=== PATIENT | female | born 1945 | race Caucasian/White ===

== ENCOUNTER 2024-12-13 14:20 | Observation (INO) | payer MEDICARE ==
--- NOTE | 2024-12-13 16:03 | XR ---
EXAMINATION TYPE: XR chest 2V DATE OF EXAM: 12/13/2024 CLINICAL INDICATION: Female, 79 years old with history of Chest Pain, TECHNIQUE: Frontal and lateral views of the chest are obtained. COMPARISON: None FINDINGS: Overlying EKG leads are present. There is no focal air space opacity, pleural effusion, o r pneumothorax seen. The cardiac silhouette size is within normal limits. The osseous structures a re demineralized. There is levoconvex scoliosis centered near the thoracolumbar junction IMPRESSION: No acute process. [facility], , 12/13/2024 4:01 PM
[2024-12-13 16:07] LABS: Basophils % (A) 0 %; Eosinophils # (A) 0.1 k/uL (0-0.7); Eosinophils % (A) 1 %; HCT 44.9 % (34.0-46.0); HGB 14.2 gm/dL (11.4-16.0); Lymphocytes # (A) 1.1 k/uL (1.0-4.8); Lymphocytes % (A) 24 %; MCH 29.5 pg (25.0-35.0); MCHC 31.8 g/dL (31.0-37.0); Mean Platelet Volume 7.7; Monocytes # (A) 0.3 k/uL (0-1.0); Monocytes % (A) 6 %; Neutrophils # (A) 3.2 k/uL (1.3-7.7); Neutrophils % (A) 67 %; Platelet Count 201 k/uL (150-450); RBC 4.82 m/uL (3.80-5.40); RDW 12.6 % (11.5-15.5); WBC 4.8 k/uL (3.8-10.6)
[2024-12-13 16:20] LABS: INR 0.9 (<1.2); Prothrombin Time 10.4 sec (10.0-12.5)
[2024-12-13 16:22] LABS: ALT 12 U/L (4-34); AST 25 U/L (14-36); African American GFR (CKD) >90 (>60 ml/min/1.73 sqM); Albumin 4.5 g/dL (3.5-5.0); Alkaline Phosphatase 64 U/L (38-126); Anion Gap 12 mmol/L; Blood Urea Nitrogen 17 mg/dL (7-17); Calcium 9.2 mg/dL (8.4-10.2); Carbon Dioxide 24 mmol/L (22-30); Chloride 101 mmol/L (98-107); Glucose 59 mg/dL (74-99); Lipase 87 U/L (23-300); Magnesium 2.2 mg/dL (1.6-2.3); Non-African American GFR(CKD) 87 (>60 ml/min/1.73 sqM); Potassium 3.9 mmol/L (3.5-5.1); Sodium 137 mmol/L (137-145); Total Bilirubin 0.7 mg/dL (0.2-1.3); Total Protein 7.4 g/dL (6.3-8.2)
[2024-12-13 16:29] LABS: NT-Pro-B-Type Natriuretic Pept 251 pg/mL
--- NOTE | 2024-12-13 17:12 | ED ---
General Adult HPI - General Chief complaint: Chest Pain Stated complaint: Chest pain R arm and jaw tingling Time Seen by Provider: 12/13/24 15:15 Source: patient Mode of arrival: ambulatory Limitations: no limitations - History of Present Illness Initial comments: Patient is a healthy 79 y/o female presenting today for right palm tingling, intermittent right jaw tingling and intermittent chest pain. States that the tingling in her right palm began yesterday evening and is limited to the right palmar aspect of her right palm only. States she has also been getting intermittent episodes of tingling that radiate up her right jaw in addition to sharp right sided chest pain that intermittently radiates to her back. None of these symptoms appear to have any exacerbating or alleviating factors. States symptoms have been occurring periodically over the last 2 months if not longer. She denies any hx strokes, any additional numbness, tingling or weakness, dizziness, headaches, changes in vision, slurred speech, difficulty in breathing, LE swelling, fevers, neck injury, recent neck manipulation, abdominal pain, nausea, vomiting, diarrhea, melena or hematochezia. - Related Data Home Medications Medication Instructions Recorded Confirmed No Known Home Medications 12/13/24 12/13/24 Allergies Allergy/AdvReac Type Severity Reaction Status Date / Time No Known Allergies Allergy Verified 12/13/24 15:29 Review of Systems ROS Statement: Those systems with pertinent positive or pertinent negative responses have been documented in the HPI. ROS Other: All systems not noted in ROS Statement are negative. Past Medical History Past Medical History: No Reported History History of Any Multi-Drug Resistant Organisms: None Reported Past Surgical History: Section, Hysterectomy Past Psychological History: No Psychological Hx Reported Smoking Status: Never smoker Past Alcohol Use History: Rare Past Drug Use History: None Reported General Exam - General Exam Comments Initial Comments: PE: CONSTITUTIONAL: No apparent distress, well appearing SKIN: Warm, dry, no jaundice, hives or petechiae EYES: Pupils are equally round, extraocular movements intact without nystagmus, clear conjunctiva, non-icteric sclera HENT: Normocephalic, atraumatic, moist mucus membranes, oropharynx clear without exudates NECK: , Full range of motion, normal appearance, no carotid bruits, no fluctuance or palpable mass, though pt states she felt some tenderness to deep palpation anterior right lower neck, to the right of and base of trachea, no palpable masses in this region PULMONARY: Clear to auscultation without wheezes, rhonchi, or rales, normal excursion, no accessory muscle use and no stridor CARDIOVASCULAR: Regular rate, rhythm, normal S1 and S2. No appreciated murmurs, rubs or gallops. Strong radial pulses with intact distal perfusion. No lower ex tremity edema GASTROINTESTINAL: Soft, active bowel sounds throughout, non-tender, non- distended, no palpable masses, no rebound or guarding. No hepatosplenomegaly GENITOURINARY: MUSCULOSKELETAL: Extremities have no gross deformity, no edema, redness, or swelling. No calf swelling NEUROLOGIC:_a/o x 3, GCS 15, normal mentation and speech. Moves all extremities x 4 without motor or sensory deficit, endorses decreased sensation to light touch to the hypothemar eminence of the right palm, this does not extend up the arm or into the hand, no abnormal movements, redness or swelling in this region. No additional neurologic deficits. PSYCHIATRIC:_normal mood and affect, thought process is clear and linear Limitations: no limitations Course Vital Signs 12/13/24 12/13/24 12/13/24 14:22 14:53 15:00 Temperature 98.0 F Pulse Rate 85 71 68 Pulse Rate [ Pulse Oximetery ] Respiratory 17 18 13 Rate Blood Pressure 150/80 140/79 140/79 Blood Pressure [Supine] O2 Sat by Pulse 99 94 L 99 Oximetry 12/13/24 12/13/24 12/13/24 15:30 16:00 16:30 Temperature Pulse Rate 69 67 66 Pulse Rate [ Pulse Oximetery ] Respiratory 20 12 9 L Rate Blood Pressure 132/63 127/74 147/71 Blood Pressure [Supine] O2 Sat by Pulse 99 97 97 Oximetry 12/13/24 12/13/24 12/13/24 17:00 21:09 21:32 Temperature 97.6 F 97.8 F Pulse Rate 91 Pulse Rate [ 77 Pulse Oximetery ] Respiratory 18 17 Rate Blood Pressure 143/71 119/71 Blood Pressure 132/77 [Supine] O2 Sat by Pulse 97 98 Oximetry EKG Findings - EKG Comments: EKG Findings:: Sinus rhythm, rate 72 bpm AR interval 154 ms QT/QTc 414/438 ms, normal axis, no ST elevations or depressions, no arrhythmia no Brugada pattern Medical Decision Making - Medical Decision Making Was pt. sent in by a medical professional or institution ([facility], [facility], urgent care, hospital, or fpc...) When possible be specific @ -No Did you speak to anyone other than the patient for history (EMS, parent, family, police, friend...)? What history was obtained from this source @ -No Did you review nursing and triage notes (agree or disagree)? Why? @ -I reviewed nursing and triage notes Were old charts reviewed (outside hosp., previous admission, EMS record, old EKG, old radiological studies, urgent care reports/EKG's, fpc records)? Report findings @ -Medical records reviewed- no prior records available for review Differential Diagnosis (chest pain, altered mental status, abdominal pain women, abdominal pain men, vaginal bleeding, weakness, fever, dyspnea, syncope, headache, dizziness, GI bleed, back pain, seizure, CVA, palpatations, mental health, musculoskeletal)? @ -Differential Chest Pain: Stable Angina, Unstable Angina, STEMI, NSTEMI Aortic Dissection, pericarditis, pleurisy, chostochondirits, Pneumothorax, Musculoskeletal, Esophageal Spasm GERD, Cholecystitis, Pancreatitis, Zoster, this is not meant to be an all-i nclusive list. EKG interpreted by me (3pts min.). @ -As above X-rays interpreted by me (1pt min.). @Personally reviewed chest x-ray see no evidence of cardiomegaly or consolidations I agree with radiologist interpretation CT interpreted by me (1pt min.). @I personally reviewed CT PE study, I see no evidence of of pulmonary emboli, I did specifically look at the right ICA, the portions are visualized not show any evidence of dissection, radiologist does note that the lower neck shows no significant findings, I agree with radiologist interpretation U/S interpreted by me (1pt. min.). @ -None done What testing was considered but not performed or refused? (CT, X-rays, U/S, labs)? Why? Please see below What meds were considered but not given or refused? Why? @ -None Did you discuss the management of the patient with other professionals (professionals i.e. [facility], [facility], lab, RT, psych nurse, renal social worker, yarn texturing machine operator, teacher, probation officer, pillowcase folder)? Give summary @ -No Was smoking cessation discussed for >3mins.? @ -No Was critical care preformed (if so, how long)? @ -No Were there social determinants of health that impacted care today? How? (Homelessness, low income, unemployed, alcoholism, drug addiction, transportation, low edu. Level, literacy, decrease access to med. care, snf, rehab)? @ -No Was there de-escalation of care discussed even if they declined (Discuss DNR or withdrawal of care, Hospice)? @ -No What co-morbidities impacted this encounter? (DM, HTN, Smoking, COPD, CAD, Cancer, CVA, ARF, Chemo, Hep., AIDS, mental health diagnosis, sleep apnea, morbid obesity)? @ -None Was patient admitted / discharged? Hospital course, mention meds given and route, prescriptions, significant lab abnormalities, going to OR and other pertinent info. @ -Admission for observation-this is a pleasant 79-year-old female with no significant medical history presenting today for intermittent chest pain, tingling to the right jaw and tingling in her right palm. Patient has no focal neurologic deficits on exam and endorses only decreased sensation to the hypothenar eminence of the right palm, this does not extend up the fingers or the arm. Neck exam shows no bruits or palpable thrill, no palpable masses or erythema, no thyromegaly. Discussed with patient plan for chest pain workup including D-dimer as it is the symptoms are secondary to atypical ACS symptoms. At this point I do not feel intracranial or vascular imaging of the neck is indicated given localization of tingling to right hypothenar emesis and benign neck exam. D dimer was minimally eleavted. CT PE study obtained which was also able to visualize the lower aspect of the neck where pt endorsed to mild TTP on exam. Read as no acute process by radiolgist. Labs reassuring. Pt will be admitted for observation for atypical chest pain symptoms. She is agreeable w/ POC. Case discussed w/ Dr. Adam, who kindly accepted pt for admission. Undiagnosed new problem with uncertain prognosis? @ -No Drug Therapy requiring intensive monitoring for toxicity (Heparin, Nitro, Insulin, Cardizem)? @ -No Were any procedures done? @ -No Diagnosis/symptom? Chest pain Acute, or Chronic, or Acute on Chronic? @ -Acute Uncomplicated (without systemic symptoms) or Complicated (systemic symptoms)? Complicated Side effects of treatment? @ -No Exacerbation, Progression, or Severe Exacerbation? @ -No Poses a threat to life or bodily function? How? (Chest pain, [place], [place], pneumonia, PE, COPD, DKA, ARF, appy, cholecystitis, CVA, Diverticulitis, Homicidal, Suicidal, threat to staff... and all critical care pts) @ -Yes potentially secondary to ACS - Lab Data Result diagrams: 12/14/24 05:43 12/14/24 05:43 Lab Results 12/13/24 12/13/24 12/13/24 Range/Units 15:48 15:48 15:48 WBC 4.8 (3.8-10.6) k/uL RBC 4.82 (3.80-5.40) m/uL Hgb 14.2 (11.4-16.0) gm/dL Hct 44.9 (34.0-46.0) % MCV 93.0 (80.0-100.0) fL MCH 29.5 (25.0-35.0) pg MCHC 31.8 (31.0-37.0) g/dL RDW 12.6 (11.5-15.5) % Plt Count 201 (150-450) k/uL MPV 7.7 Neutrophils % 67 % Lymphocytes % 24 % Monocytes % 6 % Eosinophils % 1 % Basophils % 0 % Neutrophils # 3.2 (1.3-7.7) k/uL Lymphocytes # 1.1 (1.0-4.8) k/uL Monocytes # 0.3 (0-1.0) k/uL Eosinophils # 0.1 (0-0.7) k/uL Basophils # 0.0 (0-0.2) k/uL PT 10.4 (10.0-12.5) sec INR 0.9 (<1.2) APTT 23.0 (22.0-30.0) sec D-Dimer 0.62 H (<0.60) mg/L FEU Sodium 137 (137-145) mmol/L Potassium 3.9 (3.5-5.1) mmol/L Chloride 101 (98-107) mmol/L Carbon Dioxide 24 (22-30) mmol/L Anion Gap 12 mmol/L BUN 17 (7-17) mg/dL Creatinine 0.60 (0.52-1.04) mg/dL Est GFR (CKD-EPI)AfAm >90 (>60 ml/min/1.73 sqM) Est GFR (CKD-EPI)NonAf 87 (>60 ml/min/1.73 sqM) Glucose 59 L (74-99) mg/dL Calcium 9.2 (8.4-10.2) mg/dL Magnesium 2.2 (1.6-2.3) mg/dL Total Bilirubin 0.7 (0.2-1.3) mg/dL AST 25 (14-36) U/L ALT 12 (4-34) U/L Alkaline Phosphatase 64 (38-126) U/L Troponin I (0.000-0.034) ng/mL NT-Pro-B Natriuret Pep 251 pg/mL Total Protein 7.4 (6.3-8.2) g/dL Albumin 4.5 (3.5-5.0) g/dL Lipase 87 (23-300) U/L // Range/Units 15:48 WBC (3.8-10.6) k/uL RBC (3.80-5.40) m/uL Hgb (11.4-16.0) gm/dL Hct (34.0-46.0) % MCV (80.0-100.0) fL MCH (25.0-35.0) pg MCHC (31.0-37.0) g/dL RDW (11.5-15.5) % Plt Count (150-450) k/uL MPV Neutrophils % % Lymphocytes % % Monocytes % % Eosinophils % % Basophils % % Neutrophils # (1.3-7.7) k/uL Lymphocytes # (1.0-4.8) k/uL Monocytes # (0-1.0) k/uL Eosinophils # (0-0.7) k/uL Basophils # (0-0.2) k/uL PT (10.0-12.5) sec INR (<1.2) APTT (22.0-30.0) sec D-Dimer (<0.60) mg/L FEU Sodium (137-145) mmol/L Potassium (3.5-5.1) mmol/L Chloride (98-107) mmol/L Carbon Dioxide (22-30) mmol/L Anion Gap mmol/L BUN (7-17) mg/dL Creatinine (0.52-1.04) mg/dL Est GFR (CKD-EPI)AfAm (>60 ml/min/1.73 sqM) Est GFR (CKD-EPI)NonAf (>60 ml/min/1.73 sqM) Glucose (74-99) mg/dL Calcium (8.4-10.2) mg/dL Magnesium (1.6-2.3) mg/dL Total Bilirubin (0.2-1.3) mg/dL AST (14-36) U/L ALT (4-34) U/L Alkaline Phosphatase (38-126) U/L Troponin I 0.019 (0.000-0.034) ng/mL NT-Pro-B Natriuret Pep pg/mL Total Protein (6.3-8.2) g/dL Albumin (3.5-5.0) g/dL Lipase (23-300) U/L Disposition Clinical Impression: Chest pain Disposition: ADMITTED IP TO THIS [facility] Condition: Stable
[2024-12-13] MEDS ORDERED: NALOXONE 0.4 MG/ML 1 ML VIAL IV PRN (17:13)
[2024-12-13] MEDS ORDERED: ACETAMINOPHEN TAB 325 MG TAB PO PRN (17:13)
[2024-12-13] MEDS ORDERED: ALPRAZolam 0.25 MG TAB PO PRN (17:13)
[2024-12-13] MEDS ORDERED: MAG HYDROX/AL HYDROX/SIMETH 30 ML CUP PO PRN (17:13)
[2024-12-13] MEDS ORDERED: IBUPROFEN 400 MG TAB PO PRN (17:13)
[2024-12-13] MEDS ORDERED: CALCIUM CARBONATE 500 MG CHEWABLE PO PRN (17:13)
[2024-12-13] MEDS ORDERED: ONDANSETRON 4 MG/2 ML VIAL IVP PRN (17:13)
--- NOTE | 2024-12-13 17:19 | CT ---
EXAMINATION TYPE: CT chest angio for PE CT DLP: 273.1 mGycm, Automated exposure control for dose reduction was used. DATE OF EXAM: 12/13/2024 5:11 PM COMPARISON: Chest radiograph from same day. CLINICAL INDICATION:Female, 79 years old with history of right sided chest pain, rad to neck and back ; Right sided chest pain, rad to neck and back. TECHNIQUE/CONTRAST: CTA scan of the thorax is performed with IV Contrast, patient injected with 100 ml mL of Isovue 370, pulmonary embolism protocol. MIP images are created and reviewed. FINDINGS: Pulmonary Artery: There is no evidence for a filling defect within the pulmonary vasculature to sugge st acute pulmonary embolism. The pulmonary artery is of normal size. Lungs/Pleura: No evidence of focal consolidation, pleural effusion or pneumothorax. Minimal dependent bilateral lower lobe subsegmental atelectasis. Minimal right mid lung linear scarring and/or atelect asis. Minimal biapical pleural parenchymal scarring. No suspicious pulmonary nodule or mass. Airway: Large airways are patent. Heart: Size within normal limits.No pericardial effusion. No significant coronary artery calcificatio ns. Vasculature: No evidence of aortic aneurysm. Mild atherosclerotic calcification of the aorta and its branches. Mediastinum: No gross evidence of adenopathy. Musculoskeletal: No acute osseous abnormalities. Bilateral shoulder arthropathy. Right AC joint arthr opathy. S-shaped scoliotic curvature of the thoracolumbar spine. Mild multilevel degenerative disc di sease. Soft Tissues: Unremarkable. Lower neck: No significant findings. Upper Abdomen: Inferior hepatic 1.6 cm cyst. Additional right hepatic dome subcentimeter focus which is too small characterize but likely represents a cyst. Contrast is demonstrated within both renal co llecting systems. Duodenal diverticulum. IMPRESSION: No evidence of pulmonary embolism or acute thoracic process. [facility], , 12/13/2024 5:17 PM
[2024-12-13] MEDS: ASPIRIN 81 MG PO STA (17:25)
[2024-12-13 21:00] LABS: Glucose,Whole Blood 159 mg/dL (70-110)
[2024-12-13] MEDS: FAMOTIDINE 20 MG TAB PO SCH (21:07)
--- NOTE | 2024-12-14 07:27 | US ---
EXAMINATION TYPE: US carotid duplex BILAT DATE OF EXAM: 12/13/2024 COMPARISON: NONE CLINICAL INDICATION: Female, 79 years old with history of TIA; patient states right side face and miranda d numbness Additional History: .... TECHNIQUE: Grayscale, color Doppler and spectral Doppler evaluation of the bilateral carotid systems and vertebral arteries. Indirect Doppler criteria was utilized. FINDINGS: EXAM MEASUREMENTS: RIGHT: Peak Systolic Velocity (PSV) cm/sec ----- Right CCA: 81.9 ----- Right ICA: 140.0 ----- Right ECA: 85.8 ICA/CCA ratio: 1.7 RIGHT: End Diastole cm/sec ----- Right CCA: 16.9 ----- Right ICA: 29.9 ----- Right ECA: 0.0 LEFT: Peak Systolic Velocity (PSV) cm/sec ----- Left CCA: 94.8 ----- Left ICA: 150.0 ----- Left ECA: 73.9 ICA/CCA ratio: 1.6 LEFT: End Diastole cm/sec ----- Left CCA: 18.8 ----- Left ICA: 31.2 ----- Left ECA: 0.0 VERTEBRALS (direction of flow): Right Vertebral: Antegrade Left Vertebral: Antegrade Rhythm: Normal COURT CRIER NOTES: Slightly elevated velocities seen within bilateral distal ICA's. Plaque seen bilat eral bulbs. 0.5cm probable lymph node seen near the left CCA Color Doppler imaging shows patency with blood flow throughout the carotid artery. Spectral waveforms are within normal limits. Enlarged benign appearing lymph node with central fatty hilum adjacent to the mid CCA. IMPRESSION: Right: Mild atherosclerotic plaque at the carotid bulb with less than 50% stenosis of the carotid bif urcation. Left: Mild atherosclerotic plaque at the carotid bulb with less than 50% stenosis of the carotid bifu rcation. Criteria for Assigning % of Stenosis / Diameter reduction (Estimation based on the indirect measurements of the internal carotid artery velocities (ICA PSV). 1. Normal (no stenosis)=ICA PSV < 125 cm/s: ratio < 2.0: ICA EDV<40 cm/s. 2. Less than 50% stenosis=ICA PSV < 125 cm/s: ratio < 2.0: ICA EDV<40 cm/s. 3. 50 to 69% stenosis=ICA PSV of 125 to 230 cm/s: ration 2.0 ? 4.0: ICA EDV 40-100 cm/s. 4. Greater than 70% stenosis to near occlusion= ICA PSV > 230 cm/s: ratio > 4.0: ICA EDV > 100 cm/s. 5. Near occlusion= ICA PSV velocities may be low or undetectable: variable ratio and ICA EDV. 6. Total occlusion=unable to detect flow. [facility], , 12/14/2024 7:24 AM
[2024-12-14 08:20] LABS: BUN/Creat Ratio 21.67 Ratio (12.00-20.00); Calcium 8.6 mg/dL (8.7-10.3); Carbon Dioxide 24.3 mmol/L (21.6-31.8); Chloride 110 mmol/L (96-109); Glucose 91 mg/dL (70-110); Sodium 143 mmol/L (135-145)
[2024-12-14] MEDS: ASPIRIN 81 MG PO SCH (08:20)
[2024-12-14 08:22] LABS: Basophils # (A) 0.02 X 10*3/uL (0.00-0.10); Basophils % (A) 0.5 %; Eosinophils % (A) 2.4 %; HCT 38.1 % (37.2-46.3); HGB 12.4 g/dL (12.0-15.0); Lymphocytes # (A) 1.55 X 10*3/uL (0.90-5.00); Lymphocytes % (A) 37.4 %; MCH 30.3 pg (27.0-32.0); MCHC 32.5 g/dL (32.0-37.0); MCV 93.2 FL (80.0-97.0); Mean Platelet Volume 9.8 FL (9.5-12.2); Monocytes # (A) 0.33 X 10*3/uL (0.20-1.00); NRBC Per 100 WBC 0 X 10*3/uL (0.00-0.01); Neutrophils # (A) 2.12 X 10*3/uL (1.80-7.70); Neutrophils % (A) 51.2 %; Platelet Count 166 X 10*3/uL (140-440); RBC 4.09 X 10*6/uL (4.10-5.20); RDW 13.2 % (11.5-14.5); WBC 4.14 X 10*3/uL (4.50-10.00)
--- NOTE | 2024-12-14 10:15 | P.CRDCN ---
History of Present Illness History of present illness: HISTORY OF PRESENT ILLNESS: This is a 79-year-old female with no significant past medical history. Patient does not follow with a senior operator. We have been asked to see the patient in c onsultation for chest pain. Patient examined at the bedside. Patient states that she has been having numbness in her right hand and jaw that occurs about once a month. She also reports having some mild right sided chest discomfort. She states this has been going on for a long time and usually only happens about once a month. She states that she lives with her daughter and her daughter was concerned and made her come to the hospital for further evaluation. At the time of exam this morning, she denies any chest pain or shortness of breath. DIAGNOSTICS: - EKG reveals sinus mechanism with no signs of acute ischemia. - Chest xray negative for acute process - Chest CTA: Negative for pulmonary embolism. No significant coronary artery calcifications. - Laboratory data: WBC 4.14. Hemoglobin 12.4. Platelet count 166. D-dimer 0.62. Sodium 143. Potassium 4.0. BUN 13. Creatinine 0.60. Troponin negative x 3. proBNP 251. - Current home cardiac medications include none - No previous echocardiogram, stress test, or cardiac catheterization available in EMR for review REVIEW OF SYSTEMS: At the time of my exam: CONSTITUTIONAL: Denies fever or chills. HEENT: Denies blurred vision, vision changes, or eye pain. Denies hemoptysis CARDIOVASCULAR: Denies chest pain. Denies orthopnea. Denies PND. Denies palpitations RESPIRATORY: Denies shortness of breath. GASTROINTESTINAL: Denies abdominal pain. Denies nausea or vomiting. HEMATOLOGIC: Denies bleeding disorders. GENITOURINARY: Denies any blood in urine. SKIN: Denies pruitis. Denies rash. PHYSICAL EXAM: VITAL SIGNS: Reviewed. GENERAL: Well-developed in no acute distress. HEENT: Head is normocephalic. Pupils are equal, round. Sclerae anicteric. Mucous membranes of the mouth are moist. Neck supple. No JVD or thyromegaly LUNGS: Respirations even and unlabored. Lungs essentially clear to auscultation bilaterally. HEART: Regular rate and rhythm. S1 and S2 heard. ABDOMEN: Soft. Nondistended. Nontender. EXTREMITIES: Normal range of motion. No clubbing or cyanosis. Peripheral pulses intact. No lower extremity edema NEUROLOGIC: Awake and alert. Oriented x 3. ASSESSMENT: Right sided chest pain with numbness of right hand and jaw, troponin negative x 3 PLAN: An acute coronary event has been ruled out Add aspirin 81 mg daily Check lipid panel and hemoglobin A1c Discussed stress testing with patient. Patient is adamant that she does not want to undergo stress testing. Obtain 2D echo to assess cardiac structure and function Further recommendations pending patient course Nurse practitioner note has been reviewed by physician. Signing provider agrees with the documented findings, assessment, and plan of care documented by DIRECTOR CORPORATE as a scribe. Past Medical History Past Medical History: No Reported History Additional Past Medical History / Comment(s): no medical hx History of Any Multi-Drug Resistant Organisms: None Reported Past Surgical History: Section, Hysterectomy Past Anesthesia/Blood Transfusion Reactions: No Reported Reaction Past Psychological History: No Psychological Hx Reported Smoking Status: Never smoker Past Alcohol Use History: Rare Past Drug Use History: None Reported Medications and Allergies Home Medications Medication Instructions Recorded Confirmed Type No Known Home Medications 12/13/24 12/13/24 History Allergies Allergy/AdvReac Type Severity Reaction Status Date / Time No Known Allergies Allergy Verified 12/13/24 15:29 Physical Exam Vitals: Vital Signs Temp Pulse Pulse Resp BP BP BP 12/14/24 07:00 97.6 F 67 15 132/61 12/14/24 01:08 97.6 F 67 17 135/76 12/13/24 21:32 97.8 F 77 17 132/77 12/13/24 21:09 97.6 F 91 18 119/71 12/13/24 17:00 143/71 12/13/24 16:30 66 9 L 147/71 12/13/24 16:00 67 12 127/74 12/13/24 15:30 69 20 132/63 12/13/24 15:00 68 13 140/79 12/13/24 14:53 71 18 140/79 12/13/24 14:22 98.0 F 85 17 150/80 Pulse Ox 12/14/24 07:00 99 12/14/24 01:08 98 12/13/24 21:32 98 12/13/24 21:09 97 12/13/24 17:00 12/13/24 16:30 97 12/13/24 16:00 97 12/13/24 15:30 99 12/13/24 15:00 99 12/13/24 14:53 94 L 12/13/24 14:22 99 Intake and Output 12/13/24 12/14/24 12/14/24 22:59 06:59 14:59 Other: # Voids 1 2 Weight 63.503 kg Results 12/14/24 05:43 12/14/24 05:43 Cardiac Enzymes 12/13/24 12/13/24 12/13/24 Range/Units 15:48 15:48 18:09 AST 25 (14-36) U/L Troponin I 0.019 <0.012 (0.000-0.034) ng/mL 12/13/24 Range/Units 21:13 AST (14-36) U/L Troponin I <0.012 (0.000-0.034) ng/mL Coagulation 12/13/24 Range/Units 15:48 PT 10.4 (10.0-12.5) sec APTT 23.0 (22.0-30.0) sec CBC 12/13/24 Range/Units 15:48 WBC 4.8 (3.8-10.6) k/uL RBC 4.82 (3.80-5.40) m/uL Hgb 14.2 (11.4-16.0) gm/dL Hct 44.9 (34.0-46.0) % Plt Count 201 (150-450) k/uL Comprehensive Metabolic Panel 12/13/24 Range/Units 15:48 Sodium 137 (137-145) mmol/L Potassium 3.9 (3.5-5.1) mmol/L Chloride 101 (98-107) mmol/L Carbon Dioxide 24 (22-30) mmol/L BUN 17 (7-17) mg/dL Creatinine 0.60 (0.52-1.04) mg/dL Glucose 59 L (74-99) mg/dL Calcium 9.2 (8.4-10.2) mg/dL AST 25 (14-36) U/L ALT 12 (4-34) U/L Alkaline Phosphatase 64 (38-126) U/L Total Protein 7.4 (6.3-8.2) g/dL Albumin 4.5 (3.5-5.0) g/dL Current Medications Generic Name Dose Route Start Last Admin Trade Name Freq PRN Reason Stop Dose Admin Acetaminophen 650 mg 12/13/24 17:13 Acetaminophen Tab 325 Mg Tab PO Q6HR PRN Mild Pain or Fever > 100.5 Al Hydroxide/Mg Hydroxide 15 ml 12/13/24 17:13 Mag Hydrox/Al Hydrox/Simeth 30 Ml Cup PO Q6HR PRN Indigestion Alprazolam 0.25 mg 12/13/24 17:13 Alprazolam 0.25 Mg Tab PO Q6HR PRN Anxiety Calcium Carbonate/Glycine 1,000 mg 12/13/24 17:13 Calcium Carbonate 500 Mg Chewable PO Q4HR PRN Dyspepsia Famotidine 20 mg 12/13/24 21:00 12/13/24 21:07 Famotidine 20 Mg Tab PO Not Given BID EVELIN Ibuprofen 400 mg 12/13/24 17:13 Ibuprofen 400 Mg Tab PO Q6HR PRN Mild Pain or Fever > 100.5 Naloxone HCl 0.2 mg 12/13/24 17:13 Naloxone 0.4 Mg/Ml 1 Ml Vial IV Q2M PRN Opioid Reversal Ondansetron HCl 4 mg 12/13/24 17:13 Ondansetron 4 Mg/2 Ml Vial IVP Q8HR PRN Nausea And Vomiting Intake and Output 12/13/24 12/14/24 12/14/24 22:59 06:59 14:59 Other: # Voids 1 2 Weight 63.503 kg 12/13/24 15:48 12/13/24 15:48
[2024-12-14 16:17] LABS: Chol/HDL Ratio 3.56 Ratio; LDL Cholesterol,Calculated 143.8 mg/dL (0.0-131.0)
--- NOTE | 2024-12-14 17:17 | P.HPIM ---
History of Present Illness H&P Date: 12/13/24 Chief Complaint: Chest pain/numbness right arm 79 y/o female presenting today for right palm tingling, intermittent right jaw tingling and intermittent chest pain. States that the tingling in her right palm began yesterday evening and is limited to the right palmar aspect of her right palm only. States she has also been getting intermittent episodes of tingling that radiate up her right jaw in addition to sharp right sided chest pain that intermittently radiates to her back. None of these symptoms appear to have any exacerbating or alleviating factors. States symptoms have been occurring periodically over the last 2 months if not longer. She denies any hx strokes, an y additional numbness, tingling or weakness, dizziness, headaches, changes in vision, slurred speech, difficulty in breathing, LE swelling, fevers, neck injury, recent neck manipulation, abdominal pain, nausea, vomiting, diarrhea, melena or hematochezia. - EKG reveals sinus mechanism with no signs of acute ischemia. - Chest xray negative for acute process - Chest CTA: Negative for pulmonary embolism. No significant coronary artery calcifications. - Laboratory data: WBC 4.14. Hemoglobin 12.4. Platelet count 166. D-dimer 0.62. Sodium 143. Potassium 4.0. BUN 13. Creatinine 0.60. Troponin negative x 3. proBNP 251. Review of Systems REVIEW OF SYSTEMS: CONSTITUTIONAL: No fever, no malaise, no fatigue. HEENT: No recent visual problems or hearing problems. Denied any sore throat. CARDIOVASCULAR: Chest pain PULMONARY: No shortness of breath, no cough, no hemoptysis. GASTROINTESTINAL: No diarrhea, no nausea, no vomiting, no abdominal pain. NEUROLOGICAL: No headaches, no weakness, no numbness. HEMATOLOGICAL: Denies any bleeding or petechiae. GENITOURINARY: Denies any burning micturition, frequency, or urgency. MUSCULOSKELETAL/RHEUMATOLOGICAL: Denies any joint pain, swelling, or any muscle pain. ENDOCRINE: Denies any polyuria or polydipsia. The rest of the 14-point review of systems is negative. Past Medical History Past Medical History: No Reported History History of Any Multi-Drug Resistant Organisms: None Reported Past Surgical History: Section, Hysterectomy Past Psychological History: No Psychological Hx Reported Smoking Status: Never smoker Past Alcohol Use History: Rare Past Drug Use History: None Reported Medications and Allergies Home Medications Medication Instructions Recorded Confirmed Type No Known Home Medications 12/13/24 12/13/24 History Allergies Allergy/AdvReac Type Severity Reaction Status Date / Time No Known Allergies Allergy Verified 12/13/24 15:29 Physical Exam Vitals: Vital Signs Temp Pulse Resp BP Pulse Ox 12/13/24 17:00 143/71 12/13/24 16:30 66 9 L 147/71 97 12/13/24 16:00 67 12 127/74 97 12/13/24 15:30 69 20 132/63 99 12/13/24 15:00 68 13 140/79 99 12/13/24 14:53 71 18 140/79 94 L 12/13/24 14:22 98.0 F 85 17 150/80 99 Intake and Output 12/13/24 12/13/24 12/13/24 06:59 14:59 22:59 Other: Weight 63.503 kg SKIN: Warm, dry, no jaundice, hives or petechiae EYES: Pupils are equally round, extraocular movements intact without nystagmus, clear conjunctiva, non-icteric sclera HENT: Normocephalic, atraumatic, moist mucus membranes, oropharynx clear without exudates NECK: , Full range of motion, normal appearance, no carotid bruits, no fluctuance or palpable mass, though pt states she felt some tenderness to deep palpation anterior right lower neck, to the right of and base of trachea, no palpable masses in this region PULMONARY: Clear to auscultation without wheezes, rhonchi, or rales, normal excursion, no accessory muscle use and no stridor CARDIOVASCULAR: Regular rate, rhythm, normal S1 and S2. No appreciated murmurs, rubs or gallops. Strong radial pulses with intact distal perfusion. No lower extremity edema GASTROINTESTINAL: Soft, active bowel sounds throughout, non-tender, non- distended, no palpable masses, no rebound or guarding. No hepatosplenomegaly GENITOURINARY: MUSCULOSKELETAL: Extremities have no gross deformity, no edema, redness, or swelling. No calf swelling NEUROLOGIC:_a/o x 3, GCS 15, normal mentation and speech. Moves all extremities x 4 without motor or sensory deficit, endorses decreased sensation to light touch to the hypothemar eminence of the right palm, this does not extend up the arm or into the hand, no abnormal movements, redness or swelling in this region. No additional neurologic deficits. PSYCHIATRIC:_normal mood and affect, thought process is clear and linear Results CBC & Chem 7: 12/14/24 05:43 12/14/24 05:43 Labs: Abnormal Lab Results - Last 24 Hours (Table) 12/13/24 12/13/24 Range/Units 15:48 15:48 D-Dimer 0.62 H (<0.60) mg/L FEU Glucose 59 L (74-99) mg/dL Assessment and Plan Assessment: 1. Chest pain rule out acute coronary syndrome -Patient is admitted to telemetry; monitor EKG and trend troponin -Recommend 2D echo Consult cardiology 2. Right hand and jaw numbness; patient seems to remember she was told something about her carotid arteries; will order bilateral carotid Doppler study 3. Elevated D-dimer -CTA of the chest is completed and is unremarkable 4. Mild hyperglycemia; history of diabetes; likely stress-induced; monitor Accu-Cheks DVT prophylaxis; SCDs CODE STATUS; full code
--- NOTE | 2024-12-14 17:18 | P.PN ---
Subjective Progress Note Date: 12/14/24 79 y/o female presenting today for right palm tingling, intermittent right jaw tingling and intermittent chest pain. States that the tingling in her right palm began yesterday evening and is limited to the right palmar aspect of her right palm only. States she has also been getting intermittent episodes of tingling that radiate up her right jaw in addition to sharp right sided chest pain that intermittently radiates to her back. None of these symptoms appear to have any exacerbating or alleviating factors. States symptoms have been occurring periodically over the last 2 months if not longer. She denies any hx strokes, any additional numbness, tingling or weakness, dizziness, headaches, changes in vision, slurred speech, difficulty in breathing, LE swelling, fevers, neck injury, recent neck manipulation, abdominal pain, nausea, vomiting, diarrhea, melena or hematochezia. - EKG reveals sinus mechanism with no signs of acute ischemia. - Chest xray negative for acute process - Chest CTA: Negative for pulmonary embolism. No significant coronary artery calcifications. - Laboratory data: WBC 4.14. Hemoglobin 12.4. Platelet count 166. D-dimer 0.62. Sodium 143. Potassium 4.0. BUN 13. Creatinine 0.60. Troponin negative x 3. proBNP 251. Objective - Vital Signs Vital signs: Vital Signs Temp 97.6 F 12/14/24 07:00 Pulse 67 12/14/24 07:00 Resp 15 12/14/24 07:00 BP 132/61 12/14/24 07:00 Pulse Ox 99 12/14/24 07:00 FiO2 Intake & Output 12/13/24 12/14/24 12/14/24 18:59 06:59 18:59 Intake Total 118 Balance 118 Weight 63.503 kg 63.503 kg Intake: Oral 118 Other: # Voids 2 - Exam VITAL SIGNS: Reviewed. GENERAL: Well-developed in no acute distress. HEENT: Head is normocephalic. Pupils are equal, round. Sclerae anicteric. Mucous membranes of the mouth are moist. Neck supple. No JVD or thyromegaly LUNGS: Respirations even and unlabored. Lungs essentially clear to auscultation bilaterally. HEART: Regular rate and rhythm. S1 and S2 heard. ABDOMEN: Soft. Nondistended. Nontender. EXTREMITIES: Normal range of motion. No clubbing or cyanosis. Peripheral pulses intact. No lower extremity edema NEUROLOGIC: Awake and alert. Oriented x 3. - Labs CBC & Chem 7: 12/14/24 05:43 12/14/24 05:43 Labs: Abnormal Lab Results - Last 24 Hours (Table) 12/13/24 12/13/24 12/13/24 Range/Units 15:48 15:48 20:58 WBC (4.50-10.00) X 10*3/uL RBC (4.10-5.20) X 10*6/uL D-Dimer 0.62 H (<0.60) mg/L FEU Chloride (96-109) mmol/L BUN/Creatinine Ratio (12.00-20.00) Ratio Glucose 59 L (74-99) mg/dL POC Glucose (mg/dL) 159 H (70-110) mg/dL Calcium (8.7-10.3) mg/dL 12/14/24 12/14/24 Range/Units 05:43 05:43 WBC 4.14 L (4.50-10.00) X 10*3/uL RBC 4.09 L (4.10-5.20) X 10*6/uL D-Dimer (<0.60) mg/L FEU Chloride 110 H (96-109) mmol/L BUN/Creatinine Ratio 21.67 H (12.00-20.00) Ratio Glucose (74-99) mg/dL POC Glucose (mg/dL) (70-110) mg/dL Calcium 8.6 L (8.7-10.3) mg/dL Assessment and Plan Assessment: 1. Chest pain rule out acute coronary syndrome -Patient is admitted to telemetry; monitor EKG and trend troponin -Recommend 2D echo Consult cardiology 2. Right hand and jaw numbness; patient seems to remember she was told something about her carotid arteries; will order bilateral carotid Doppler study 3. Elevated D-dimer -CTA of the chest is completed and is unremarkable 4. Mild hyperglycemia; history of diabetes; likely stress-induced; monitor Accu-Cheks DVT prophylaxis; SCDs CODE STATUS; full code
--- NOTE | 2024-12-14 18:38 | CA ---
Transthoracic Echo Report Name: Tory Vasques Age: 79 Gender: F : 1945 Exam Date: 12/14/2024 11:59 Exam Location: [place] [facility] Ht (in): 61 Wt (lb): 140 Ordering Physician: Ilsa Bowman Attending/Referring Phys: [id number], [employer] Leander Buenrostro, MÓNICA Procedure CPT: Indications: CP, LV function Cardiac Hx: Technical Quality: Good Contrast 1: Total Dose (mL): Contrast 2: Total Dose (mL): MEASUREMENTS (Male / Female) Normal Values 2D ECHO LV Diastolic Diameter PLAX 4.1 cm 4.2 - 5.9 / 3.9 - 5.3 cm LV Systolic Diameter PLAX 2.4 cm IVS Diastolic Thickness 0.9 cm 0.6 - 1.0 / 0.6 - 0.9 cm LVPW Diastolic Thickness 0.8 cm 0.6 - 1.0 / 0.6 - 0.9 cm LV Relative Wall Thickness 0.4 RV Internal Dim ED PLAX 3.3 cm LVOT Diameter 1.5 cm LA Systolic Diameter LX 3.8 cm 3.0 - 4.0 / 2.7 - 3.8 cm LV Diastolic Volume MOD BP 81.0 cm??? 67 - 155 / 56 - 104 cm??? LV Systolic Volume MOD BP 34.0 cm??? 22 - 58 / 19 - 49 cm??? LV Ejection Fraction MOD BP 58.0 % >= 55 % LV Cardiac Index MOD BP 1885.3 cm???/min???m??? LV Diastolic Volume MOD 4C 77.7 cm??? LV Systolic Volume MOD 4C 31.3 cm??? LV Ejection Fraction MOD 4C 59.7 % LV Cardiac Index MOD 4C 1860.9 cm???/min???m??? LV Diastolic Length 4C 8.0 cm LV Systolic Length 4C 6.7 cm LV Diastolic Volume MOD 2C 85.2 cm??? LV Systolic Volume MOD 2C 34.5 cm??? LV Ejection Fraction MOD 2C 59.5 % LV Cardiac Index MOD 2C 2031.5 cm???/min???m??? LV Diastolic Length 2C 8.0 cm LV Systolic Length 2C 7.2 cm LA Volume 41.5 cm??? 18 - 58 / 22 - 52 cm??? LA Volume Index 24.9 cm???/m??? 16 - 28 cm???/m??? DOPPLER MV Area PHT 2.0 cm??? Mitral E Point Velocity 66.4 cm/s Mitral A Point Velocity 84.8 cm/s Mitral E to A Ratio 0.8 MV Deceleration Time 382.1 ms TR Peak Velocity 207.9 cm/s TR Peak Gradient 17.3 mmHg Right Atrial Pressure 5.0 mmHg Pulmonary Artery Systolic Pressu 22.3 mmHg Right Ventricular Systolic Press 22.3 mmHg FINDINGS Left Ventricle Left ventricular ejection fraction is estimated at 60%. Normal Left ventricular size, wall thickness, systolic function with no obvious regional wall motion abnormalities. Right Ventricle Normal right ventricular size and function. Right ventricular systolic pressure within normal limits. Right Atrium Normal right atrial size. Left Atrium Normal left atrial size. Mitral Valve Mitral valve thickened. Mitral annular calcification. No mitral stenosis. No mitral regurgitation. Aortic Valve Trileaflet aortic valve. Thickened aortic valve without stenosis. Aortic valve sclerosis. No aortic stenosis. No aortic regurgitation. Tricuspid Valve Structurally normal tricuspid valve. No tricuspid stenosis. Trace tricuspid regurgitation. Pulmonic Valve Structurally normal pulmonic valve. No pulmonic stenosis. Trace pulmonic regurgitation. Pericardium No pericardial effusion. No pleural effusion. Aorta Normal size aortic root and proximal ascending aorta. CONCLUSIONS Normal biventricular systolic function Aortic sclerosis Normal pulmonary artery systolic pressure No pericardial effusion Previewed by: Dr. Willy Sarmiento MD (Electronically Signed) Final Date: 14 December 2024 18:37
[2024-12-15 07:27] VITALS: BP 145/79; PULSE 62; RESP 16; TEMP 97.7
== END 2024-12-15 13:48 | disposition home or self-care (01) ==
LOC: EC 14:20 → 6NMEDSUR 17:16
PROVIDERS: ADMIT Internal Medicine; ATTEND Internal Medicine
DX: R07.9 Chest pain, unspecified (principal); R20.0 Anesthesia of skin; R20.2 Paresthesia of skin; R73.9 Hyperglycemia, unspecified; Z86.39 Personal history of other endocrine, nutritional and metabolic disease
CPT/HCPCS: 99285; 36415; 93005; 93306; 85379; 83880; 80061; 80053; 80048; 83690; 83735; 84484; 85025 ×2; 85610; 85730; 83036; 71046; 93880; 71275; G0378 ×3; Q9967